=== PATIENT | male | born 1940 | race Caucasian/White ===

== ENCOUNTER → 2021-10-21 13:57 | Outpatient (CLI) | payer OTHER, SELFPAY ==
[2021-10-21 15:02] LABS: Prothrombin Time 74.3 SECONDS (10.1-12.7)
[2021-10-21 15:17] LABS: INR 6.3 (0.9-1.3)
== END ==
DX: I48.91 Unspecified atrial fibrillation (principal)
CPT/HCPCS: 36415; 85610

== ENCOUNTER → 2021-10-23 10:31 | Outpatient (CLI) | payer OTHER, SELFPAY ==
[2021-10-23 11:37] LABS: INR 4.4 (0.9-1.3); Prothrombin Time 51.1 SECONDS (10.1-12.7)
== END ==
DX: Z95.2 Presence of prosthetic heart valve (principal)
CPT/HCPCS: 36415; 85610

== ENCOUNTER 2021-10-24 10:41 | Emergency (ER) | payer OTHER, SELFPAY ==
[2021-10-24 10:50] VITALS: BP 146/71; PULSE 61; RESP 16; TEMP 35.8; O2SAT 98; BMI 27.1
[2021-10-24] MEDS: BACITRACIN OINT 0.9 GM PCKT 1 APPLIC TOP (12:56)
[2021-10-24] MEDS: LIDOCAINE 1% W/EPI 1 ML SUBCUT (12:58)
--- NOTE | 2021-10-24 13:58 | ED_ITS ---
HPI - Wound/Laceration <SAYDA Fierro - Last Filed: 10/24/21 19:27> General Chief Complaint: Wound/Laceration Stated Complaint: Laceration to right hand, On Thinners Time Seen by Provider: 10/24/21 12:02 Source: patient Mode of arrival: Ambulatory History of Present Illness HPI narrative: This is an 81-year-old male who presents to the emergency department for a laceration to the palm over his MCP joint of his thumb on the right hand. Patient states he is handed, states that he caught his hand on the door and there is a small skin tear there with a flap and it is bleeding. Patient has a history of atrial fibrillation is on chronic anticoagulation of warfarin, states that he was recently ill and his last INR is 4.2, states that his palm required a pressure dressing to get the bleeding to stop. He states that his tetanus is up-to-date, denies any significant pain, denies any pulsatile bleeding, states that his wound is approximately 2 cm and is shaped like a U. Related Data Allergies Allergy/AdvReac Type Severity Reaction Status Date / Time No Known Drug Allergies Allergy Verified 10/24/21 10:53 Review of Systems <SAYDA Fierro - Last Filed: 10/24/21 19:27> Review of Systems Narrative: General: denies fever, chills Head/Neck: denies headache, neck pain Eyes: denies visual changes, eye pain Cardio: denies chest pain, palpitations Respiratory: denies shortness of breath, cough MSK: denies new joint pain, muscle weakness or swelling Skin: denies rash, itching or wound, laceration to the palm of his right hand Neuro: denies numbness, tingling, dizziness Patient History <SAYDA Fierro - Last Filed: 10/24/21 19:27> Social History Smoking Status: Unknown if ever smoked Smoking Status: Unknown if ever smoked alcohol intake frequency: holidays/special occasions only Substance Use Type: does not use Exam <SAYDA Fierro - Last Filed: 10/24/21 19:27> Narrative Exam Narrative: Independently reviewed vitals signs and nursing notes. General: cooperative, comfortable, in no acute distress, well groomed Head: atraumatic, symmetrical facial expressions Neck: supple Eyes: equal round and reactive, EOMI, conjunctiva normal Nose: nares patent, no rhinorrhea Mouth/Throat: moist mucus membranes Cardiovascular: regular rate and rhythm, no peripheral edema, warm extremities Skin: brisk capillary refill, no rash, no erythema, small laceration approximately 1.5 cm to the palm of patient's right hand, slight oozing of blood, wound is an avulsion/flap, shaped like a triangle. Neuro: normal speech and cognition, A&O x3 Psych: mental status is grossly normal, congruent mood, normal affect, pleasant and cooperative Initial Vital Signs Initial Vital Signs: Vital Signs Temperature 96.5 F L 10/24/21 10:50 Pulse Rate 61 10/24/21 10:50 Respiratory Rate 16 10/24/21 10:50 Blood Pressure 146/71 H 10/24/21 10:50 Pulse Oximetry 98 10/24/21 10:50 Oxygen Delivery Method 10/24/21 10:50 <Katherin Gray DO - Last Filed: 10/26/21 19:42> Initial Vital Signs Initial Vital Signs: Vital Signs Temperature 96.5 F L 10/24/21 10:50 Pulse Rate 61 10/24/21 10:50 Respiratory Rate 16 10/24/21 10:50 Blood Pressure 146/71 H 10/24/21 10:50 Pulse Oximetry 98 10/24/21 10:50 Oxygen Delivery Method 10/24/21 10:50 Procedures <SAYDA Fierro - Last Filed: 10/24/21 19:27> Laceration Repair Laceration 1: Site: hand Side (If applicable): right Size (cm): 1.5 Description: flap Depth: simple, single layer Local Anesthetic: lidocaine 1% and with bicarb Amount of anesthesia used (mL): 6 Pre-repair: wound explored, irrigated extensively and deep structures intact Skin layer closed with: nylon Skin layer suture size: 6-0 Number of sutures: 7 Technique: simple, interrupted Course <SAYDA Fierro - Last Filed: 10/24/21 19:27> Orders Ordered: Discontinued Medications Acetaminophen (Acetaminophen 325 Mg Tablet) 650 mg PO NOW ONE Stop: 10/24/21 12:34 Last Admin: 10/24/21 12:57 Dose: Not Given Documented By: AT Bacitracin (Bacitracin Oint 0.9 Gm Pckt) 1 applic TOP NOW ONE Stop: 10/24/21 12:34 Last Admin: 10/24/21 12:56 Dose: 1 applic Documented By: AT Lidocaine/Epinephrine (Lidocaine 1% W/Epi) 1 ml SUBCUT NOW ONE Stop: 10/24/21 12:58 Last Admin: 10/24/21 12:58 Dose: 1 ml Documented By: AT Lidocaine/Sodium Bicarbonate (Lido 1%/Sod Bicarb 8.4% (10ml) 10 Ml Syringe) 10 ml SUBCUT NOW ONE Stop: 10/24/21 12:34 Last Admin: 10/24/21 12:58 Dose: Not Given Documented By: AT Vital Signs Vital signs: Vital Signs - 8 hr 10/24/21 10:50 Temperature 96.5 F L Pulse Rate 61 Respiratory Rate 16 Blood Pressure 146/71 H Pulse Oximetry 98 Oxygen Delivery Method Room Air <Katherin Gray DO - Last Filed: 10/26/21 19:42> Orders Ordered: Discontinued Medications Acetaminophen (Acetaminophen 325 Mg Tablet) 650 mg PO NOW ONE Stop: 10/24/21 12:34 Last Admin: 10/24/21 12:57 Dose: Not Given Documented By: AT Bacitracin (Bacitracin Oint 0.9 Gm Pckt) 1 applic TOP NOW ONE Stop: 10/24/21 12:34 Last Admin: 10/24/21 12:56 Dose: 1 applic Documented By: AT Lidocaine/Epinephrine (Lidocaine 1% W/Epi) 1 ml SUBCUT NOW ONE Stop: 10/24/21 12:58 Last Admin: 10/24/21 12:58 Dose: 1 ml Documented By: AT Lidocaine/Sodium Bicarbonate (Lido 1%/Sod Bicarb 8.4% (10ml) 10 Ml Syringe) 10 ml SUBCUT NOW ONE Stop: 10/24/21 12:34 Last Admin: 10/24/21 12:58 Dose: Not Given Documented By: AT Vital Signs Vital signs: Vital Signs - 8 hr 10/24/21 10:50 Temperature 96.5 F L Pulse Rate 61 Respiratory Rate 16 Blood Pressure 146/71 H Pulse Oximetry 98 Oxygen Delivery Method Room Air MDM - Wound/Laceration <SAYDA Fierro - Last Filed: 10/24/21 19:27> [facility] Narrative Medical decision making narrative: This is a pleasant 81-year-old male who is chronically anticoagulated on warfarin for atrial fibrillation with a pacemaker, presents to the emergency department for a laceration to his right hand after he accidentally got his hand caught on the doorjamb. He states that his INR is currently 4.4, he has been oozing blood out of this wound on his hand. He states that his tetanus is up-to-date and he is on a headed back to [place] where he lives. Patient's w ound was irrigated with normal saline, suture repair was completed using six 0 Ethilon, he received eight sutures with good wound approximation, no further bleeding, covered wound with bacitracin and a nonstick dressing with gauze, use Darnell wrap to adhere dressing to site. Patient tolerated well, CMS is intact distally, no sensation changes, cap refills brisk, patient is pleasant, has full range of motion without any deficit, no foreign debris. Patient is appropriate and amenable to discharge home. Vital signs are stable on repeat examination is unremarkable. Patient has been informed of results. Patient has been given strict return to ER precautions for any new or worsening symptoms. Patient understands to follow up closely with outpatient providers as instructed. Patient understands plan and agrees to discharge home. All questions and concerns answered at this time. Discharge Plan Departure Patient Disposition: Home Clinical Impression: Laceration Instructions: DI for Laceration Repair Activity Restrictions/Additional Instructions: *You have been diagnosed with a laceration to your right palm. Please keep this covered with a Band-Aid and antibiotic ointment until your stitches come out. Please keep it clean, change her dressing twice a day, you can ice it today and tomorrow to help reduce swelling and bleeding, keep it elevated as much as possible over the next 48 hours to prevent swelling and bleeding. Have your sutures removed in 10-14 days. I hope you enjoy the rest of your trip. *What to do: *Please continue to take your regular medications as directed. [ ] New medication prescriptions sent to your pharmacy: [ ] [ ] New medication written as a paper prescription [ x] No new medications given *Please follow up with your primary care provider in 2-3 days, call for an appointment. Let them know you were seen in the Emergency Department and that we asked that you be seen for follow-up. We will electronically transmit a record of today's note if your PCP is in our system *If you do not have a primary care provider please contact [phone] to establish care with one of the [facility] primary care providers. *Return to Emergency Department if you should have any new, worsening or concerning symptoms, such as [fever greater than 101F, chills, worsening pain, persistent vomiting or other bothersome symptoms] Visit Report Forms: Patient Portal/API <Katherin Gray, - Last Filed: 10/26/21 19:42> Cosign ED Attending Marjature Attestation: I was immediately available in the department for consultation. Documentation has been reviewed.
== END 2021-10-24 13:21 | disposition home or self-care (01) ==
PROVIDERS: Emergency Provider Nurse Practitioner Critical Care Medicine
DX: S61.411A Laceration without foreign body of right hand, initial encounter (principal); X58.XXXA Exposure to other specified factors, initial encounter; Z79.01 Long term (current) use of anticoagulants; Z95.0 Presence of cardiac pacemaker
CPT/HCPCS: 12001; 99283